=== PATIENT | male | born 1985 | race Caucasian/White ===

== ENCOUNTER 2018-06-14 15:41 | Emergency (ER) | payer SELFPAY ==
[~2018-06-14] VITALS: Ht 175.3 cm; Wt 59.1 kg
[2018-06-14 16:41] LABS: MICROSCOPIC NOT IND
[2018-06-14 16:45] LABS: BASOPHILS # (AUTO) 0.05 x10^3/uL (0-0.1); BASOPHILS % (AUTO) 1 % (0-1); EOSINOPHILS # (AUTO) 0.04 x10^3/uL (0-0.4); EOSINOPHILS % (AUTO) 1 % (1-7); LYMPHOCYTES # (AUTO) 2.74 x10^3/uL (1-3.4); LYMPHOCYTES % (AUTO) 38 % (22-44); MD NO; MEAN CORPUSCULAR HEMOGLOBIN 31.4 pg (27.5-34.5); MEAN CORPUSCULAR HGB CONC 33.7 g/dL (33.2-36.2); MEAN CORPUSCULAR VOLUME 93.1 fL (81-97); MEAN PLATELET VOLUME 8.2 fL (7.4-10.4); MONOCYTES # (AUTO) 0.58 x10^3/uL (0.2-0.8); MONOCYTES % (AUTO) 8 % (2-9); NEUTROPHILS # (AUTO) 3.91 x10^3/uL (1.8-6.8); NEUTROPHILS % (AUTO) 53 % (42-75); PLATELET COUNT 292 x10^3/uL (130-400); RED BLOOD COUNT 4.88 x10^6/uL (4.38-5.82); RED CELL DISTRIBUTION WIDTH 12.6 % (9.4-14.8)
[2018-06-14 16:47] LABS: CULTURE INDICATED? NO
[2018-06-14 16:55] LABS: ALBUMIN 4.4 g/dL (3.4-5.0); ANION GAP 9 mmol/L (5-15); CHLORIDE 108 mmol/L (98-107); CREATININE 1.06 mg/dL (0.7-1.3)
[2018-06-14 18:56] VITALS: BP 114/78
== END 2018-06-14 19:00 | disposition home or self-care (01) ==
LOC: ED 18:45
DX: R33.9 Retention of urine, unspecified (principal); F17.200 Nicotine dependence, unspecified, uncomplicated
CPT/HCPCS: 36415; 80048; 81003; 82040; 85025; 99284

== ENCOUNTER 2018-10-21 15:44 | Emergency (ER) | payer SELFPAY ==
[~2018-10-21] VITALS: Ht 175.3 cm; Wt 60.3 kg
[2018-10-21 15:52] VITALS: BP 132/76
== END 2018-10-21 16:51 | disposition home or self-care (01) ==
LOC: ED 16:39
DX: B02.9 Zoster without complications (principal); Z87.891 Personal history of nicotine dependence
CPT/HCPCS: 99283